=== PATIENT | female | born 1980 | race American Indian/Alaskan Native ===

== ENCOUNTER 2017-10-08 19:14 | Emergency (ER) | payer OTHER ==
[2017-10-08 19:35] VITALS: BP 121/66
[2017-10-08 20:32] LABS: Hematocrit 39.6 % (30.3-42.9); Hemoglobin 13.4 gm/dl (10.1-14.3); Mean Corpuscular HGB Conc 34 % (30-34); Mean Corpuscular Hemoglobin 30 pg (28-32); Mean Corpuscular Volume 88 fl (79-97); Red Blood Count 4.48 M/mm3 (3.65-5.03); Red Cell Distribution Width 13.3 % (13.2-15.2)
[2017-10-08 20:33] LABS: Platelet Count 163 K/mm3 (140-440)
[2017-10-08 20:41] LABS: Bacteria,Urine 2+ /HPF (Negative); Bilirubin,Urine NEG (Negative); Blood,Urine NEG (Negative); Color,Urine Yellow (Yellow); Mucus,Urine FEW /HPF; Protein,Urine <15 mg/dL mg/dL (Negative); Urobilinogen,Urine < 2.0 mg/dL (<2.0)
[2017-10-08 21:00] LABS: BUN/Creatinine Ratio 15; Blood Urea Nitrogen 9 mg/dL (7-17); Calcium 9.2 mg/dL (8.4-10.2); Hemolysis Index 17
--- NOTE | 2017-10-09 00:13 | Ultrasound Report ---
FINAL REPORT PROCEDURE: US OB TRANSVAGINAL TECHNIQUE: Real-time transvaginal sonography of the uterus, placenta, amniotic fluid, adnexa, and fetus was performed with image documentation. Measurements were obtained to determine age/size. M-mode Doppler was used to document heartbeat. CPT 74837 HISTORY: severe pain with COMPARISON: No prior studies are available for comparison. FINDINGS: CRL: 4.5mm, which corresponds to a gestational age of: 6weeks, 1 days. Yolk Sac: Normal. Embryonic Cardiac Activity: 132 beats per minute Gestational Sac: Normal. Right Ovary: Normal. Left Ovary: There is a 19 millimeter cyst. Estimated delivery date: 05/22/2017 Comment: Complete anatomic survey at 18-20 weeks suggested. IMPRESSION: 1. Single living intrauterine gestation at approximately 7 weeks and 5 days 2. EDC by US 05/22/2017.
--- NOTE | 2017-10-09 00:23 | Ultrasound Report ---
FINAL REPORT PROCEDURE: US OB < = 14 WEEKS FETUS TECHNIQUE: Real-time transabdominal sonography of the uterus, placenta, amniotic fluid, adnexa, and fetus was performed with image documentation. Measurements were obtained to determine age/size. M-mode Doppler was used to document heartbeat. CPT 18795 HISTORY: severe pain with COMPARISON: No prior studies are available for comparison. FINDINGS: CRL: Is 4.5 mm, which corresponds to a gestational age of: 6 weeks, 1 days. Yolk Sac: Normal. Embryonic Cardiac Activity: 132 Gestational Sac: Normal. Amniotic fluid: Normal. Cervix: Normal. Right Ovary: Normal. Left Ovary: There is a 19 millimeters cyst Estimated delivery date: 05/22/2017 Uterus and adnexa: Normal. IMPRESSION: Single live intrauterine gestation at approximately 7 weeks and 5 days. EDC by US 05/22/2017
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
[2017-10-09] MEDS ORDERED: TYLENOL PO ONE (01:37)
== END 2017-10-09 02:55 | disposition home or self-care (01) ==
LOC: ED 19:14
DX: O26.891 Other specified pregnancy related conditions, first trimester (principal); R10.2 Pelvic and perineal pain; Z3A.01 Less than 8 weeks gestation of pregnancy; Z88.1 Allergy status to other antibiotic agents; Z91.040 Latex allergy status
CPT/HCPCS: 36415; 76801; 76817; 80048; 81001; 84702; 85027; 86900; 86901